=== PATIENT | male | born 1965 ===

== ENCOUNTER 2022-11-23 08:54 | Outpatient (OUT) | payer OTHER, SELFPAY ==
--- NOTE | 2022-11-23 | XR_ITS ---
The [address] [address] Patient Name: MARIAH ARIAS MRN: [id number] date: 1965 Sex: M Assigned Patient Location: [facility] Current Patient Location: [facility] Accession/Order Number: [id number] Exam Date: 11/23/2022 09:28 Report Date: 11/23/2022 10:09 At the request of: BALTAZAR RODRÍGUEZ Procedure: XR foot RT min 3V PROCEDURE: XR foot RT min 3V HISTORY: RIGHT FOOT PAIN COMPARISON: None. FINDINGS: BONES:No fracture, acute abnormality, or significant arthropathy. SOFT TISSUES:No visible soft tissue swelling. EFFUSION:None visible. OTHER: Negative. XR/XR foot RT min 3V IMPRESSION: 1. No acute bone abnormality or significant degenerative joint disease. Electronically authenticated by: NIKOS ARVIZU Date: 11/23/2022 10:09
== END 2022-11-23 08:55 | disposition home or self-care (01) ==
LOC: RAD 08:54
PROVIDERS: Visit Provider Podiatrist Foot & Ankle Surgery
DX: M79.671 Pain in right foot (principal)
CPT/HCPCS: 73630